=== PATIENT | female | born 1960 ===

== ENCOUNTER 2023-09-16 18:35 | Emergency (ER) | payer BC, SELFPAY ==
[2023-09-16 18:37] VITALS: BP 148/86; BMI 26.1
--- NOTE | 2023-09-16 19:19 | ED.GENMED ---
History of Present Illness
<Antonia Aguila PA-C - Last Filed: 09/16/23 20:43>
General
Chief Complaint: Headache
Source: patient
Exam Limitations: none
Time Seen by Provider: 09/16/23 19:19
Nursing documentation reviewed up to this point in time: agreed with
Travel History
Have you had any contact with someone who has COVID-19?: No
Do you have any symptoms of coronavirus? Fever > 100 degrees, chills, cough, shortness of breath, sore throat, loss of taste or smell, muscle aches, or headache?: No
History of Present Illness
History of Present Illness:
63-year-old female with a past medical history of diabetes, hypertension presenting emergency department today with right eye pain and right facial pain for the past few weeks. She also has had a right-sided facial droop that started last night at 9
pm. Patient was seen by her PCP recently who tested her for Lyme which was negative. Patient states that she would get severe pain on the skin of her head when she would brush her hair or lightly touch her face. Patient states that she has a lot
of trouble closing her right eye. Patient denies fevers or chills, nausea or vomiting, abdominal pain. Patient denies any changes to her vision, loss of vision. Patient denies any difficulty speaking, paresthesias, motor weakness.
Review of Systems
<Antonia Aguila PA-C - Last Filed: 09/16/23 20:43>
Review of Systems
All Other Systems: ROS reviewed and negative except as documented in HPI and ROS
Phy Exam
<Antonia Aguila PA-C - Last Filed: 09/16/23 20:43>
Physical Exam
Physical Exam:
General: Patient is well appearing and in no acute distress; non-toxic
Skin: Warm and dry. There is mild swelling of the right auricle with 2 small erythematous raised lesions.
Head: Normocephalic, atraumatic
Eyes: Sclera non-icteric. EOMs intact. On fluorescein staining, patient has no corneal abrasions, ulcers, or dendritic lesions.
Ears: See skin exam above. Bilateral TMs intact with no erythema, no bulging. Cone of light visualized
Cardiac: Regular rate and rhythm, no murmur
Peripheral Vascular: No lower extremity
Pulm: Normal respiratory effort, no wheezes, rales
Abdomen: No abdominal tenderness
Neuro: CN II-XII intact, no focal neurologic deficits. 5 out of 5 strength in bilateral upper and lower extremities. Right sided facial droop noted with forehead involvement.
Psychiatric: Appropriate mood and affect.
Scores
<Antonia Aguila PA-C - Last Filed: 09/16/23 20:43>
NIH Stroke Score
Level of Consciousness: 0 - Alert
LOC Questions: 0-Answers both correctly
LOC Commands: 0-Performs both correctly
Best Horizontal Gaze: 0-Normal
Visual Sutton: 0=Normal, no visual loss
Facial Palsy: 1=Minor paralysis
Motor - Right Arm: 0=No drift 10 seconds
Motor - Left Arm: 0=No drift 10 seconds
Motor - Right Le-No drift 5 seconds
Motor - Left Le-No drift 5 seconds
Limb Ataxia: 0-Absent
Sensation: 0-Normal
Best Language: 0-No aphasia
Dysarthria: 0-Normal
Extinction and Inattention: 0-No abnormality
Total Score:: 1
<Eduard Spicer DO - Last Filed: 09/16/23 22:25>
NIH Stroke Score
Total Score:: 1
Course
<Antonia Aguila PA-C - Last Filed: 09/16/23 20:43>
Orders/Labs/Results
Orders:
Orders
09/16/23 20:08
CT Head W/o Iv Contrast Urgent
Comment:
Reason For Exam: right facial droop
09/16/23 20:11
Complete Blood Count/With Diff Urgent
Comprehensive Metabolic Panel Urgent
Lyme Progressive Urgent
Abnormal Lab Results
09/16/23
20:11
BUN 18 H mg/dl
(7-17)
Calcium 10.3 H mg/dl
(8.4-10.2)
09/16/23 20:11
09/16/23 20:11
Vital Signs
Initial and Last Documented VS:
Initial Vital Signs
Temp Pulse Resp BP Pulse Ox
98 F 85 16 148/86 98
09/16/23 18:37 09/16/23 18:37 09/16/23 18:37 09/16/23 18:37 09/16/23 18:37
Last Documented Vital Signs
Temp Pulse Resp BP Pulse Ox
98 F 85 16 130/90 96
09/16/23 18:37 09/16/23 22:18 09/16/23 18:37 09/16/23 22:18 09/16/23 22:18
Tessylt;Eduard Spicer, DO - Last Filed: 09/16/23 22:25>
Orders/Labs/Results
Orders:
Orders
09/16/23 20:08
CT Head W/o Iv Contrast Urgent
Comment:
Reason For Exam: right facial droop
09/16/23 20:11
Complete Blood Count/With Diff Urgent
Comprehensive Metabolic Panel Urgent
Lyme Progressive Urgent
Abnormal Lab Results
09/16/23
20:11
BUN 18 H mg/dl
(7-17)
Calcium 10.3 H mg/dl
(8.4-10.2)
09/16/23 20:11
09/16/23 20:11
Vital Signs
Initial and Last Documented VS:
Initial Vital Signs
Temp Pulse Resp BP Pulse Ox
98 F 85 16 148/86 98
09/16/23 18:37 09/16/23 18:37 09/16/23 18:37 09/16/23 18:37 09/16/23 18:37
Last Documented Vital Signs
Temp Pulse Resp BP Pulse Ox
98 F 85 16 130/90 96
09/16/23 18:37 09/16/23 22:18 09/16/23 18:37 09/16/23 22:18 09/16/23 22:18
<Antonia Aguila PA-C - Last Filed: 09/16/23 20:43>
MDM/Problems Addressed
Differential Diagnosis Includes:
Differentials include Levelland Stokes syndrome, Duarte's palsy, Lyme disease, CVA, trigeminal neuralgia, TMJ syndrome
MDM/Problems Addressed:
Facial pain, eye pain, headache
Chronic conditions affecting care:
Hypertension, diabetes
<Eduard Spicer DO - Last Filed: 09/16/23 22:25>
*Critical Care Note
Total Time (30-74mins, 75-104mins- exclusive of procedures): Not Applicable
<Antonia Aguila PA-C - Last Filed: 09/16/23 20:43>
Update Note
Update Note:
8:42 pm-- Care transferred to Dr. Spicer
ED Attending Note
<Antonia Aguila PA-C - Last Filed: 09/16/23 20:43>
-
Portions of this chart may have been created with voice recognition software.� Occasional wrong word or��sound alike� substitutions may have occurred due to the inherent limitations of voice recognition software.
<Eduard Spicer DO - Last Filed: 09/16/23 22:25>
ED Attending Note
Patient seen and examined by attending physician: Yes
I performed the substantive portion of visit, reviewed & personally made and approve the management plan that is documented in note by myself or [place].: Yes
ED Attending Note:
Seen with PA examined independently looks like a peripheral seventh palsy, trouble closing her eye, involving the forehead
Plan will be Lyme titer, steroids antivirals IV hydration PCP follow-up
Discharge Plan
Departure
Patient Disposition: Home (Routine Discharge)
Date of Disposition: 09/16/23
Time of Disposition: 22:21
Patient with high blood pressure during this ER visit?: Yes
Condition: Good
Discharge Problem:
Duarte's palsy
Instructions: Shingles (DC), Duarte's Palsy (DC), BLOOD PRESSURE
Prescriptions:
New
valacyclovir 500 mg tablet
1,000 mg PO BID 7 Days Qty: 28 0RF
prednisone 20 mg tablet
60 mg PO DAILY 5 Days Qty: 15 0RF
Lubrifresh PM 83-15 % ointment
1 applic ophthalmic (eye) HS Qty: 3.5 0RF
artificial tears(hypromellose) 0.3 % drops
1 drp ophthalmic (eye) Q6H PRN (Reason: dry eyes) Qty: 15 0RF
Activity Restrictions/Additional Instructions:
Medications as discussed:
Lubrifresh PM: This ointment will help lubricate your eye. Please apply ointment to the right eye at bedtime.
Prednisone: Please take 60 mg once daily for 5 days (three, 20 mg tablets daily.)
Valacyclovir: Please take 1,000 mg twice daily for 7 days.
Artifical tears: You can apply drops as needed to your right eye every 6 hours as needed for right eye dryness.
Please follow up with your primary care provider.
Please return to the emergency department for any concerns.
Interventions
Interventions:
*Risk Screen - Suicide Last Done: 09/16/23 18:37
*Neglect/Abuse Screening Last Done: 09/16/23 18:37
ED- Fall Risk Assessment Last Done: 09/16/23 18:37
*ED COVID-19 Vaccine History Last Done: 09/16/23 18:37
ED- Neurological Assessment Last Done: 09/16/23 20:57
Discharge Date and Time
Print Language: MAURITANIAN
[2023-09-16 20:29] LABS: ALT (SGPT) 23 U/L (0-35); AST (SGOT) 22 U/L (14-36); Alkaline Phosphatase 62 U/L (38-126); Blood Urea Nitrogen 18 mg/dl (7-17); Calcium 10.3 mg/dl (8.4-10.2); Carbon Dioxide 25 mmol/L (22-30); Chloride 107 mmol/L (98-107); Estimated Creatinine Clearance 82 ml/min; Glucose 92 mg/dl (70-99); Potassium 4.1 mmol/L (3.5-5.1); Sodium 136 mmol/L (135-145); Total Bilirubin 0.3 mg/dl (0.2-1.3); Total Protein 6.6 g/dl (6.3-8.2); eGFR > 60.00
[2023-09-16 20:31] LABS: % Basophils 0.9 % (0-2); % Eosinophils 1.6 % (0-6); % Immature Granulocytes 0.2 % (0-0.5); % Lymphocytes 31.3 % (20.5-51.1); % Monocytes 8.6 % (1.7-9.3); % Neutrophils 57.4 % (42.2-75.2); Absolute Basophils 0.1 10^3/uL (0-0.2); Absolute Eosinophils 0.1 10^3/uL (0-0.7); Absolute Lymphocytes 1.7 10^3/uL (1.2-3.4); Absolute Monocytes 0.5 10^3/uL (0.1-0.6); Absolute Neutrophils 3.1 10^3/uL (1.4-6.5); Hematocrit 39.8 % (37.0-47.0); Hemoglobin 13.5 g/dL (12.0-16.0); Mean Corp Hgb Conc. 33.9 g/dL (33.0-37.0); Mean Corpuscular Volume 91.3 fL (81.0-99.0); Mean Platelet Volume 10.1 fL (7.4-10.4); Nucleated Red Blood Cells % 0 %; Platelet Count 192 10^3/uL (130-400); Red Blood Cell Count 4.36 10^6/uL (4.20-5.40); Red Cell Dist. Width 12.2 % (11.5-14.5); White Blood Cell Count 5.5 10^3/uL (4.8-10.8)
[2023-09-16 22:18] VITALS: BP 130/90
[2023-09-17 15:13] LABS: Lyme Antibody Screen, EIA Negative (Negative)
== END 2023-09-16 22:28 | disposition home or self-care (01) ==
LOC: EMR 18:35
PROVIDERS: Physician Assistant; EMERGENCY PHYSICIAN Emergency Medicine; FAMILY PHYSICIAN Internal Medicine
DX: G51.0 Bell's palsy (principal); E11.9 Type 2 diabetes mellitus without complications; I10 Essential (primary) hypertension
CPT/HCPCS: 99284; 70450; 80053; 85025; 86618